=== PATIENT | female | born 1980 | race Caucasian/White ===

== ENCOUNTER → 2019-02-09 07:39 | Outpatient (CLI) | payer BC | END | disposition home or self-care (01) | LOC: D.NM 07:39 | PROVIDERS: ATTEND Emergency Medicine | DX: R10.817 Generalized abdominal tenderness (principal) ==

== ENCOUNTER 2019-03-03 05:45 | Day surgery (SDC) | payer BC ==
[2019-03-02 14:14] LABS: BASOPHILS 0.4 % (0-2); EOSINOPHILS 2.5 % (0-7); HEMATOCRIT 36.8 % (36.0-48.0); HEMOGLOBIN 12.1 g/dL (12-16); IMMATURE GRANULOCYTES 0.1 % (0-5); LYMPHOCYTES 37.6 % (15-50); MCH 27.6 pg (26.0-34.0); MCHC 32.9 g/dL (31.0-37.0); MEAN PLATELET VOLUME 10.4 fL (7.4-10.4); MONOCYTES 8.1 % (2-11); NEUTROPHILS 51.3 % (40-80); PLATELET COUNT 249 10x3/uL (130-400); RBC 4.38 10x6/uL (4.00-5.40); RDW 13.2 % (11.5-14.5); WBC 7.1 10x3/uL (4.8-10.8)
[2019-03-02 14:39] LABS: CALC OSMOLALITY 276 mosm/kg (275-300); CALCIUM 8.9 mg/dL (8.5-10.1); CARBON DIOXIDE 27.4 mmol/L (21.0-32.0); CHLORIDE - SERUM 103 mmol/L (98-107); CREATININE - SERUM 0.8 mg/dL (0.6-1.3); GLUCOSE 98 mg/dL (74-106); SODIUM 140 mmol/L (136-145); UREA NITROGEN 8 mg/dL (7-18); eGFR NON AFRICAN AMERICAN 86 mL/min (90-120)
[~2019-03-03] VITALS: Ht 162.6 cm; Wt 88.0 kg
--- NOTE | ~2019-03-03 | OP ---
PATIENT NAME: JAMILA KC MEDICAL RECORD: [id number] :84 LOCATION:D.OPS ADMISSION DATE: SURGEON: EMRE MURRAY MD DATE OF OPERATION: 03/03/2019 PREOPERATIVE DIAGNOSES: 1. Biliary dyskinesia. 2. Hyperthyroidism. POSTOPERATIVE DIAGNOSES: 1. Biliary dyskinesia. 2. Hyperthyroidism. PROCEDURE: Laparoscopic cholecystectomy. SURGEON: Emre Murray MD TRACK FITTER: Zohra Pritchett APRN REPORT OF OPERATION: The patient's abdomen was prepped and draped in sterile fashion. A cutdown was made on the superior aspect of the umbilicus, 0 Vicryls were placed on the fascia bilaterally and the fascia was incised with 15-blade. I then bluntly entered the peritoneal cavity and placed a 12-mm Jose port. Under direct visualization, a 5 mm trocar was placed in the epigastrium and 2 more 5-mm trocars were placed in the right subcostal region. The gallbladder was grasped and elevated. There was no sign of any inflammatory changes. The cystic artery and cystic duct were dissected free and these were clipped proximally and distally and ligated in standard fashion. The gallbladder was taken off the liver bed using electrocautery and placed into the right upper quadrant. Any bleeding from the liver bed was then treated with electrocautery. At this point, the ports and insufflation were then removed and the gallbladder was taken out through the umbilicus. The umbilical fascia was closed with interrupted 0 Vicryls times 3. The wounds were irrigated out with normal saline and infused with 10 mL of 0.25% Marcaine with epinephrine. The skin incisions were closed with subcutaneous 5-0 Monocryl and dressed appropriately. COMPLICATIONS: None. CONDITION: Stable. ANESTHESIA: General endotracheal and local. BLOOD LOSS: Minimal. TRANSINT:[id number] Voice Confirmation ID: [id number] DOCUMENT ID: [id number] EMRE MURRAY MD CC: WHITNEY JERRY [id number] DICTATION DATE: 03/03/19 0854 RENEWALS SPECIALIST: 03/03/19 1106 [facility] [address] [place] [address]
[~2019-03-03 05:45] MED LIST: LEVOTHYROXINE50 MCG PO; MELOXICAM TAB 15M PO; OMEPRAZOLE CAP 20M PO
[2019-03-03 06:31] VITALS: BP 103/55; Ht 162.6 cm; Wt 88.0 kg
[2019-03-03] MEDS ORDERED: HYDROCODON-ACE1 EA10 PO (08:46)
== END 2019-03-03 11:15 | disposition home or self-care (01) ==
LOC: D.OPS 05:45 → D.PAN 08:00 → D.OPS 08:00
PROVIDERS: ATTEND Surgery
DX: K82.8 Other specified diseases of gallbladder (principal); E05.90 Thyrotoxicosis, unspecified without thyrotoxic crisis or storm; Z01.812 Encounter for preprocedural laboratory examination